=== PATIENT | male | born 1945 | race Caucasian/White ===

== ENCOUNTER 2020-05-11 15:43 | Inpatient (IN) | payer MEDICARE, SELFPAY ==
[2020-05-11] VITALS (10 sets, daily range): BP systolic 167–213; BP diastolic 96–146; PULSE 75–97; RESP 16–18; TEMP 36.5; O2SAT 96–100; BMI 26.5
--- NOTE | 2020-05-11 15:37 | ECG_ITS ---
APPROVED REPORT Exam: Resting ECG HR:90 bpm ECG Measurements Heart Rate 90 AXES MA 174 P 36 QRSd 98 QRS -16 QT 430 T 37 QTc 526 <Conclusion> Normal sinus rhythm Possible Left atrial enlargement LAD Incomplete right bundle branch block Prolonged QT Abnormal ECG Electronically signed by : Colin Fisher, 05/12/2020 08:43:20
--- NOTE | 2020-05-11 15:46 | CT_ITS ---
PROCEDURE: CT HEAD/BRAIN WO CON CLINICAL INDICATION: Weakness, Vomiting Nausea, vomiting, dizziness COMPARISON: No exams were available for comparison TECHNIQUE: Axial images obtained. All CT scans at the facility use one or more dose reduction, viz: automated exposure control, ma/kV adjustment per patient size (including targeted exams where dose is matched to indication, i.e. head), or iterative reconstruction technique. FINDINGS: There is generalized atrophy. 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 There are periventricular ischemic gliotic changes. Retention cyst is present in the left maxillary sinus. IMPRESSION: No acute intracranial finding Dictated by: Jackson Bragg MD 05/11/2020 16:24 Jackson Bragg MD in [facility] 05/11/2020 16:24
--- NOTE | 2020-05-11 15:46 | PC.NURSE ---
Rad called upon pt's arrival to ED.
--- NOTE | 2020-05-11 15:50 | XR_ITS ---
PROCEDURE: XR CHEST PORTABLE CLINICAL HISTORY: weakness cp COMPARISON: No exams were available for comparison FINDINGS: The cardiomediastinal silhouette and pulmonary vascularity are within normal limits. The lungs are clear without infiltrates, suspicious nodules, or pleural effusions. No acute bony abnormalities. IMPRESSION: No acute findings. Dictated by: Jackson Bragg MD 05/11/2020 16:47 Jackson Bragg MD in [facility] 05/11/2020 16:47
--- NOTE | 2020-05-11 15:57 | PC.NURSE ---
contacted radiology to check on status of CT for pt, stroke protocol, spoke with elizabeth. States she will check on it
--- NOTE | 2020-05-11 15:59 | PC.NURSE ---
pt to CT
--- NOTE | 2020-05-11 16:00 | PC.NURSE ---
plycor operator paging dr. gorman (surgeon program control analyst)
--- NOTE | 2020-05-11 16:01 | PC.NURSE ---
NATALEE VELEZ speaking with Dr. Coy
[2020-05-11 16:03] LABS: Basophils # 0.1 K/mm3 (0-0.2); Basophils % 0.5 % (0.1-2.0); Eosinophils % 0.2 % (0.1-12.0); Hematocrit 46.5 % (42.0-52.0); Hemoglobin 16.1 g/dL (14.1-18.0); Lymphocytes # 2.9 K/mm3 (0.7-4.5); Lymphocytes % 33.9 % (10-50); Mean Corpuscular HGB Conc 34.6 g/dL (31.8-35.4); Mean Corpuscular Hemoglobin 31.4 pg (27.0-31.2); Mean Corpuscular Volume 90.8 fl (80-94); Mean Platelet Volume 9.7 fl (7.4-10.4); Monocytes # 0.4 K/mm3 (0.1-1.0); Neutrophils # 5.2 K/mm3 (1.8-7.8); Neutrophils % 60.3 % (37.0-80.0); Platelet Count 223 K/mm3 (142-424); Red Blood Count 5.12 M/mm3 (4.60-6.20); Red Cell Distribution Width 13.6 % (11.5-17.5); White Blood Count 8.7 K/mm3 (4.8-10.8)
[2020-05-11 16:14] LABS: Chloride 101 mmol/L (98-107); Sodium 137 mmol/L (136-145)
[2020-05-11 16:16] LABS: Blood Urea Nitrogen 16 mg/dl (9-20); Creatinine Clearance Estimated 76 mL/min (50-200); Estimated Glomerular Filt Rate 94 ml/min (>60); GFR (African American) 114 ML/MIN (>60)
[2020-05-11 16:17] LABS: Alanine Aminotransferase 52 U/L (12-78); Albumin Level 4.1 g/dl (3.5-5.0); Albumin/Globulin Ratio 1.3 (1.1-1.8); Alkaline Phosphatase 128 U/L (38-126); Aspartate Amino Transferase 61 U/L (17-59); Calcium 9.6 mg/dl (8.4-10.2); Carbon Dioxide 15 mmol/L (22.0-30.0); Globulin 3.1 g/dL (1.3-3.2); Total Protein,Serum 7.2 g/dl (6.3-8.2)
[2020-05-11 16:21] LABS: Glucose 401 mg/dl (74-100)
--- NOTE | 2020-05-11 16:22 | PC.NURSE ---
pt return from CT
--- NOTE | 2020-05-11 16:26 | PC.NURSE ---
Lab at bedside
[2020-05-11 16:29] LABS: Troponin I < 0.01 ng/ml (0.00-0.034)
--- NOTE | 2020-05-11 16:29 | PC.NURSE ---
Critical Lab values called to Michelle Lazaro RN Lactic Acid 6.8
[2020-05-11 16:30] LABS: Lactic Acid 6.8 mmol/L (0.7-2.1)
--- NOTE | 2020-05-11 16:32 | PC.NURSE ---
Pt family at bedside
[2020-05-11 16:46] LABS: VBG Base Excess -4.9 mmol/L (-2.4-2.3); VBG HCO3 16.8 mmol/L (23-30); VBG Oxygen Saturation 99.1 % (50-70); VBG PO2 173.3 mmol/L (28-40); VBG Total CO2 17.4 mmol/L (23-27)
--- NOTE | 2020-05-11 16:49 | PC.NURSE ---
per BMP and Lactic to be repeated 2 hours from the first set being drawn.
[2020-05-11 16:50] LABS: VBG PCO2 17.8 mmol/L (35-51); VBG PH 7.59 mmol/L (7.31-7.41)
[2020-05-11 17:02] LABS: Acetone, Serum (Rapid) None Detected (None Detect)
--- NOTE | 2020-05-11 17:06 | PC.NURSE ---
addressed lactic acid level and need for fluids with ER MD, states at this time no infection known for pt, pt is getting a 1 Liter bolus at this time, start pt on NS with 20 meq K as ordered and give pt another 1 L bolus of LR. Will continue to monitor
[2020-05-11 17:22] LABS: Microscopic, Urine URINE MICROSCOPIC (MICROSCOPIC)
--- NOTE | 2020-05-11 17:22 | PC.NURSE ---
Dr Cid returned call. he is conche operator for service.
[2020-05-11 17:27] LABS: Appearance,Urine CLEAR (Clear); Bilirubin,Urine Negative (Negative); Blood, Urine Negative (Negative); Color,Urine YELLOW (Yellow); Glucose,Urine (UA) 3+ (Negative); Ketones,Urine 2+ (Negative); Leukocyte Esterase,Urine Negative (Negative); Nitrate,Urine Negative (Negative); Protein,Urine Negative (Negative); Urobilinogen,Urine 0.2 EU/dl (0.2)
[2020-05-11 17:34] LABS: Squamous Epithelial Cell,Urine Occasional #/hpf (0-5)
[2020-05-11 17:35] LABS: Amorphous Sediment,Urine Trace /lpf
--- NOTE | 2020-05-11 17:42 | HMH.EDGENADL ---
ED Disposition Clinical Impression: HHNC (hyperglycemic hyperosmolar nonketotic coma) Disposition: Admitted As Inpatient Condition on Discharge: Serious - Critical Care Critical Care Time: Yes Attestation: On 05/11/20, the high probability of a clinically significant, sudden or life threatening deterioration of the following system(s) required my full and direct attention, intervention and personal management. The time I documented below is in addition to time spent performing reported procedures but includes the following listed in this critical care notation. Vital system(s) involved:: Metabolic Failure My critical care processes included: Assessment & monitoring of V/S, Initial and Re-exams, Data Review/Interpretation, Coordinating Care, Medication Orders and management, Documentation Medical Decision Making - Medical Records Medical records reviewed: Yes: I reviewed the patient's medical records. - Alvaro Inquiry Pt receiving controlled substance: No Vital Signs: 05/11/20 15:44 05/11/20 16:32 05/11/20 17:15 Pulse Rate [Apical] 81 76 75 Respiratory Rate 16 Blood Pressure [Right Arm] 210/101 H 193/100 H 195/103 H Blood Pressure Mean [Right Arm] 137 131 133 Blood Pressure Source [Right Arm] Automatic Cuff Automatic Cuff Blood Pressure Position [Right Arm] Sitting Sitting Sitting 02 Sat by Pulse Oximetry 96 100 100 Oxygen Delivery Method Nasal Cannula Oxygen Flow Rate (LPM) 2 - Lab Data Lab Results 05/11/20 15:50: WBC 8.7, RBC 5.12, Hgb 16.1, Hct 46.5, MCV 90.8, MCH 31.4 H, MCHC 34.6, RDW 13.6, Plt Count 223, MPV 9.7, Neut % (Auto) 60.3, Lymph % (Auto) 33.9, [place] % (Auto) 5.0, Eos % (Auto) 0.2, Baso % (Auto) 0.5, Neut # (Auto) 5.2, Lymph # (Auto) 2.9, [place] # (Auto) 0.4, Eos # (Auto) 0.0, Baso # (Auto) 0.1 05/11/20 15:50: Sodium 137, Potassium 3.0 L, Chloride 101, Carbon Dioxide 15 L, Anion Gap 24.0 H, BUN 16, Creatinine 0.80, Estimated Creat Clear 76, Estimated GFR 94, Est GFR ( Amer) 114, Glucose 401 H*, Calcium 9.6, Total Bilirubin 1.0, AST 61 H, ALT 52, Alkaline Phosphatase 128 H, Troponin I < 0.01, Total Protein 7.2, Albumin 4.1, Globulin 3.1, Albumin/Globulin Ratio 1.3 05/11/20 15:50: Lactate 6.8 H 05/11/20 15:50: Hemoglobin A1c 12.0 H 05/11/20 15:50: Acetone Level None detected 05/11/20 16:35: VBG pH 7.59 H, VBG pCO2 17.8 L, VBG pO2 173.3 H, VBG HCO3 16.8 L, VBG Total CO2 17.4 L, VBG O2 Saturation 99.1 H, VBG Base Excess -4.9 L 05/11/20 17:00: Urine Color Yellow, Urine Appearance Clear, Urine pH 6.0, Ur Specific [place] 1.020, Urine Protein Negative, Urine Glucose (UA) 3+, Urine Ketones 2+, Urine Blood Negative, Urine Nitrate Negative, Urine Bilirubin Negative, Urine Urobilinogen 0.2, Ur Leukocyte Esterase Negative, Urine RBC None, Urine WBC None, Ur Squamous Epith Cells Occasional, Amorphous Sediment Trace, Urine Bacteria None Result diagrams: 05/11/20 15:50 05/11/20 15:50 Orders (Tests/Meds): ED MEDICATIONS Generic Name Dose Route Start Last Admin Trade Name Freq PRN Reason Stop Dose Admin Potassium Chloride/Water 100 mls @ 50 mls/hr 05/11/20 16:43 05/11/20 17:13 Potassium Chloride 20meq/100ml Ivpb IV 05/11/20 20:42 50 mls/hr Q2H SARITA Administration Lactated Ringer's 1,000 mls @ 999 mls/hr 05/11/20 17:15 Lactated Ringer's 1000 Ml Bag IV 05/11/20 18:15 .Q1H1M SARITA Discontinued Medications Generic Name Dose Route Start Last Admin Trade Name Freq PRN Reason Stop Dose Admin Lactated Ringer's 1,000 mls @ 999 mls/hr 05/11/20 16:00 05/11/20 16:23 Lactated Ringer's 1000 Ml Bag IV 05/11/20 17:00 999 mls/hr .Q1H1M SARITA Administration Potassium Chloride/Sodium Chloride 1,000 mls @ 100 mls/hr 05/11/20 16:45 05/11/20 17:14 Kcl 20 Meq In Ns 1,000 Ml Iv Soln IV 06/10/20 16:44 100 mls/hr .Q10H SARITA Administration Ondansetron HCl 4 mg 05/11/20 15:51 05/11/20 16:22 Zofran 4mg/2ml Vial IV 05/11/20 15:52 4 mg ONCE ONE Administration O
[2020-05-11 18:09] LABS: Coronavirus 19 IgG Antibody Negative (Negative); Coronavirus 19 IgM Antibody Negative (Negative)
--- NOTE | 2020-05-11 18:19 | PC.NURSE ---
Addendum entered by Holly Wilkerson, EMT 05/11/20 18:21: per lactic and bmp every two hours X2 Original Note: per md lactic and bmp every two hours X2 hours, then to be repeated every four hours until lactic is within normal range.
[2020-05-11 18:30] LABS: Lactic Acid 3.9 mmol/L (0.7-2.1)
[2020-05-11 18:31] LABS: Chloride 102 mmol/L (98-107); Potassium 3.9 mmoL/L (3.5-5.1); Sodium 138 mmol/L (136-145)
--- NOTE | 2020-05-11 18:31 | PC.NURSE ---
report called to willow shetty rn on second floor at this time.
[2020-05-11 18:34] LABS: Anion Gap 15.9 mEq/L (5-15); Blood Urea Nitrogen 15 mg/dl (9-20); Carbon Dioxide 24 mmol/L (22.0-30.0); Creatinine Clearance Estimated 76 mL/min (50-200); Estimated Glomerular Filt Rate 94 ml/min (>60); GFR (African American) 114 ML/MIN (>60); Glucose 337 mg/dl (74-100)
--- NOTE | 2020-05-11 18:47 | PC.NURSE ---
Pt arrived on the floor at this time.
--- NOTE | 2020-05-11 19:49 | PC.NURSE ---
er stated they wanted bmp every 4 hours and lactic every 4 until it was less than 2
[2020-05-11 20:00] LABS: Reflex Lactic Add Lactic Reflex
[2020-05-11 20:12] LABS: Troponin I < 0.01 ng/ml (0.00-0.034)
[2020-05-11 20:24] LABS: Chloride 101 mmol/L (98-107); Sodium 138 mmol/L (136-145)
[2020-05-11 20:25] LABS: Potassium 3.9 mmoL/L (3.5-5.1)
[2020-05-11 20:27] LABS: Blood Urea Nitrogen 14 mg/dl (9-20); Creatinine Clearance Estimated 76 mL/min (50-200); Estimated Glomerular Filt Rate 110 ml/min (>60); GFR (African American) 133 ML/MIN (>60)
[2020-05-11 20:28] LABS: Anion Gap 16.9 mEq/L (5-15); Calcium 9.3 mg/dl (8.4-10.2); Carbon Dioxide 24 mmol/L (22.0-30.0); Glucose 330 mg/dl (74-100)
[2020-05-11 20:30] LABS: Lactic Acid 3.6 mmol/L (0.7-2.1)
--- NOTE | 2020-05-11 22:38 | PC.NURSE ---
He is A&Ox4. His face is red but he states that it is always red. He reports I feel great. His BP is slightly lower than what it was upon his arrival to the floor. He states he has been drinking alot of pop with sugar recently. He is voiding per his urinal. His urine is straw colored and clear. 1300mL of urine out thus far this shift. Denies nausea, dizziness, and pain. Plan to place in seizure precautions. He denies any medical hx other than a hx of HTN and hernia repair. He states he used to take lisinopril 20mg PO daily for HTN but states after he retired his PCP stated that his BP was better and that he did not need to take it anymore. Denies any home meds. Teds are refused. He reports that his last BM was on 05/11.
[2020-05-11 22:53] LABS: Troponin I < 0.01 ng/ml (0.00-0.034)
[2020-05-11 23:12] LABS: POC Glucose,Bedside 302 (70-110)
[2020-05-11 23:12] LABS: POC Glucose,Bedside 309 (70-110)
[2020-05-12] VITALS (24 sets, daily range): BP systolic 102–206; BP diastolic 61–112; PULSE 70–94; RESP 15–20; TEMP 36.7–37.1; O2SAT 94–100; BMI 26.3
[2020-05-12 00:36] LABS: Lactic Acid 2.3 mmol/L (0.7-2.1)
[2020-05-12 00:41] LABS: Anion Gap 7.9 mEq/L (5-15); Blood Urea Nitrogen 14 mg/dl (9-20); Calcium 9.3 mg/dl (8.4-10.2); Carbon Dioxide 29 mmol/L (22.0-30.0); Chloride 105 mmol/L (98-107); Creatinine Clearance Estimated 76 mL/min (50-200); Estimated Glomerular Filt Rate 110 ml/min (>60); GFR (African American) 133 ML/MIN (>60); Glucose 240 mg/dl (74-100); Potassium 3.9 mmoL/L (3.5-5.1); Sodium 138 mmol/L (136-145)
--- NOTE | 2020-05-12 03:25 | PC.NURSE ---
BP has started to decrease since admission. 154/87 at 0300. NSR on telemetry. Urine continues to be straw colored and clear.
[2020-05-12 04:09] LABS: Chloride 103 mmol/L (98-107); Potassium 3.7 mmoL/L (3.5-5.1); Sodium 139 mmol/L (136-145)
[2020-05-12 04:12] LABS: Anion Gap 12.7 mEq/L (5-15); Blood Urea Nitrogen 14 mg/dl (9-20); Calcium 8.9 mg/dl (8.4-10.2); Carbon Dioxide 27 mmol/L (22.0-30.0); Creatinine Clearance Estimated 76 mL/min (50-200); Estimated Glomerular Filt Rate 110 ml/min (>60); GFR (African American) 133 ML/MIN (>60); Glucose 196 mg/dl (74-100)
[2020-05-12 04:13] LABS: Lactic Acid 1.6 mmol/L (0.7-2.1)
[2020-05-12 05:29] LABS: POC Glucose,Bedside 180 (70-110)
--- NOTE | 2020-05-12 07:33 | HMH.PHAVTE ---
[facility] Pharmacy VTE Monitoring - Patient Demographics Admission date: 05/12/20 Report Date: 05/12/20 Time: 07:33 Allergies/Adverse Reactions: Patient Allergies No Known Allergies Allergy (Verified 05/11/20 15:50) Height: 1.78 m Weight: 83.518 kg Patient Problems: Current Active Problems HHNC (hyperglycemic hyperosmolar nonketotic coma) (Acute) - VTE Risk Labs: VTE Related Lab Results Hgb 16.1 g/dL (14.1-18.0) 05/11/20 15:50 Hct 46.5 % (42.0-52.0) 05/11/20 15:50 Plt Count 223 K/mm3 (142-424) 05/11/20 15:50 BUN 14 mg/dl (9-20) 05/12/20 03:55 Creatinine 0.70 mg/dl (0.66-1.25) 05/12/20 03:55 Estimated Creat Clear 76 mL/min (50-200) 05/12/20 03:55 Was VTE Risk Assessment Performed: Yes VTE Score: 1 VTE Risk Level: Very Low Risk Clinical Trial Participant: No - Prophylaxis VTE Prophylaxis Ordered?: Yes Types of VTE Prophylaxis: TEDS Knee High
[2020-05-12 08:13] LABS: Chloride 103 mmol/L (98-107)
[2020-05-12 08:14] LABS: Potassium 3.8 mmoL/L (3.5-5.1); Sodium 137 mmol/L (136-145)
[2020-05-12 08:16] LABS: Blood Urea Nitrogen 15 mg/dl (9-20); Creatinine Clearance Estimated 75 mL/min (50-200); Estimated Glomerular Filt Rate 110 ml/min (>60); GFR (African American) 133 ML/MIN (>60)
[2020-05-12 08:17] LABS: Anion Gap 10.8 mEq/L (5-15); Calcium 8.8 mg/dl (8.4-10.2); Carbon Dioxide 27 mmol/L (22.0-30.0); Glucose 176 mg/dl (74-100)
--- NOTE | 2020-05-12 12:15 | PC.NURSE ---
Called office and received a recording, message left requesting diet order
[2020-05-12 12:20] LABS: POC Glucose,Bedside 182 (70-110)
--- NOTE | 2020-05-12 13:09 | CA_ITS ---
APPROVED REPORT EXAM: Comprehensive 2D, Doppler, and color-flow Echocardiogram Roofer Helper Vinyl Coating: Teresita Weiss CRT Ht: 5 ft 10 in Wt: 184lbs BSA: 2.02 BP: 195/103 mmHg Indications: Murmur 2D Dimensions LVOT 2.10 cm (M/F) 1.5-2.5 M-Mode Dimensions RVDd 2.63 cm (0.9-2.6) LVDd 4.13 cm (3.5-5.7) LVDs 2.35 cm (3.5-5.7) IVSd 2.06 cm (0.6-1.1) PWd 1.00 cm (0.6-1.1) EF (Teich) 74.70% FS 43.10% EDV (Teich) 75.50 mL ESV (Teich) 19.10 mL LV Diastology E/A Ratio 0.61 Mitral Valve MV A Velocity 104.00 (40-130 cm/s) Left Ventricle Atrium is mildly enlarged, left ventricle is normal size, mild concentric left ventricular hypertrophy, visually estimated ejection fraction 55% with no regional wall motion abnormality, grade 1 diastolic dysfunction seen with tissue Doppler evidence of raise left atrial pressure. Right Ventricle Right atrium and right ventricle are normal size and contractility. Aortic Valve Aortic valve is thickened and fibrosed. There is no aortic stenosis or aortic insufficiency. Mitral Valve Mitral valve leaflets are minimally thickened, there is mild mitral regurgitation. Tricuspid Valve Tricuspid valve is grossly normal, there is mild tricuspid regurgitation. Pulmonic Valve Pulmonic valve is poorly visualized. Great Vessels Aortic root is normal size. Pericardium No significant pericardial effusion noted Conclusion 1. Mildly enlarged left atrium, normal left ventricular size, mild concentric left ventricular hypertrophy, visually estimated ejection fraction 55% with no regional wall motion abnormality, grade 1 diastolic dysfunction seen with tissue Doppler evidence of raise left atrial pressure. 2. Mild mitral and tricuspid regurgitation. 3. Thickened and calcified aortic valve without aortic stenosis or aortic insufficiency. 4. No significant pericardial effusion noted. Electronically signed by : Sreedhar Rodriguez, 05/13/2020 13:26:14
--- NOTE | 2020-05-12 13:09 | CA_ITS ---
APPROVED REPORT Seal Skinner: CT Laterality: Bilateral Study Quality: Adequate Indications: dizzyness/bruit Doppler Spectral Velocity Analysis ECA (R) 165.30/12.80 cm/s ECA (L) 152.20/9.60 cm/s dICA (R) 83.50/23.10 cm/s dICA (L) 114.50/39.70 cm/s Kirti (R) 92.50/22.50 cm/s Kirti (L) 89.00/26.90 cm/s pICA (R) 61.00/15.40 cm/s pICA (L) 73.30/22.40 cm/s dCCA (R) 73.70/7.70 cm/s dCCA (L) 105.90/21.20 cm/s pCCA (R) 115.70/12.90 cm/s pCCA (L) 131.90/19.30 cm/s Vert (R) 34.70/12.80 cm/s Vert (L) 23.40/3.00 cm/s ICA/CCA 1.30 ICA/CCA 1.10 Findings Duplex evaluation demonstrates stenosis of the right proximal internal carotid artery in the range of 20-49%,lower end of scale Duplex evaluation demonstrates stenosis of the left proximal internal carotid artery in the range of 20-49% lower end of scale. Duplex evaluation demonstrates antegrade flow of the bilateral Vertebral Arteries. Conclusion Duplex evaluation demonstrates stenosis of the right proximal internal carotid artery in the range of 20-49%,lower end of scale Duplex evaluation demonstrates stenosis of the left proximal internal carotid artery in the range of 20-49% lower end of scale. Duplex evaluation demonstrates antegrade flow of the bilateral Vertebral Arteries. Electronically signed by : Jackson Bragg MD 05/12/2020 17:22:26
--- NOTE | 2020-05-12 14:31 | HMH.CNCARD ---
History of Present Illness Consult date: 05/12/20 Requesting physician: Kin Cid Chief complaint: weakness History of present illness: This is a 75-year-old white gentleman who came into the hospital with weakness and fatigue. The patient states that he had been out working and he got extremely fatigued and weak. He states this continued to progress and then felt like his legs were heavy and he could not move. He did get significantly nauseated and had to vomit. He did call EMS and was brought to the emergency department. The patient was found to be hypertensive and hyperglycemic. The patient was unaware that he had hypertension or diabetes. He has been started on metformin and lisinopril. Today he states that he does feel much better. He denies any chest pain or pressure. He denies any shortness of breath or edema. He denies any fever, chills, nausea, vomiting, diarrhea, PND or orthopnea today. The patient does have an abnormal EKG but no acute ischemic changes are noted. He denies tobacco use. He denies a family history of ischemic heart disease. His troponins were negative on admission. [facility] History I have reviewed the patient's past medical history: Yes Medical History: Reports:: Hypertension Denies:: Cancer, Diabetes Mellitus Type 1, Diabetes Mellitus Type 2, Internal Pacemaker, MRSA *Have you ever received a pneumonia vaccine?: No *Have you received a flu vaccine this season?: No Other Surgeries: No: Pacemaker Amputation: No - *Social History Last grade of school completed: High school graduate Smoking Status: Never smoker Alcohol Intake: never *Occupational Status:: retired *Travel in the last 8 weeks: None Family Hx:: Diabetes Meds Home Medications Medication Instructions Recorded Confirmed Type No Known Home Medications 05/11/20 05/11/20 History Allergies Allergy/AdvReac Type Severity Reaction Status Date / Time No Known Allergies Allergy Verified 05/11/20 15:50 Exam Vital signs and Labs for Last 24 Hours: Temp Pulse Resp BP Pulse Ox 98.4 F 74 17 158/88 H 99 05/12/20 03:30 05/12/20 12:00 05/12/20 12:00 05/12/20 12:00 05/12/20 12:00 Laboratory Results - last 24 hr 05/11/20 15:50: WBC 8.7, RBC 5.12, Hgb 16.1, Hct 46.5, MCV 90.8, MCH 31.4 H, MCHC 34.6, RDW 13.6, Plt Count 223, MPV 9.7, Neut % (Auto) 60.3, Lymph % (Auto) 33.9, [place] % (Auto) 5.0, Eos % (Auto) 0.2, Baso % (Auto) 0.5, Neut # (Auto) 5.2, Lymph # (Auto) 2.9, [place] # (Auto) 0.4, Eos # (Auto) 0.0, Baso # (Auto) 0.1 05/11/20 15:50: Sodium 137, Potassium 3.0 L, Chloride 101, Carbon Dioxide 15 L, Anion Gap 24.0 H, BUN 16, Creatinine 0.80, Estimated Creat Clear 76, Estimated GFR 94, Est GFR ( Amer) 114, Glucose 401 H*, Calcium 9.6, Total Bilirubin 1.0, AST 61 H, ALT 52, Alkaline Phosphatase 128 H, Troponin I < 0.01, Total Protein 7.2, Albumin 4.1, Globulin 3.1, Albumin/Globulin Ratio 1.3 05/11/20 15:50: Lactate 6.8 H 05/11/20 15:50: Hemoglobin A1c 12.0 H 05/11/20 15:50: Acetone Level None detected 05/11/20 15:50: SARS-CoV-2 IgG Ab (Rapid) Negative, SARS-CoV-2 IgM Ab (Rapid) Negative 05/11/20 16:35: VBG pH 7.59 H, VBG pCO2 17.8 L, VBG pO2 173.3 H, VBG HCO3 16.8 L, VBG Total CO2 17.4 L, VBG O2 Saturation 99.1 H, VBG Base Excess -4.9 L 05/11/20 17:00: Urine Color Yellow, Urine Appearance Clear, Urine pH 6.0, Ur Specific [place] 1.020, Urine Protein Negative, Urine Glucose (UA) 3+, Urine Ketones 2+, Urine Blood Negative, Urine Nitrate Negative, Urine Bilirubin Negative, Urine Urobilinogen 0.2, Ur Leukocyte Esterase Negative, Urine RBC None, Urine WBC None, Ur Squamous Epith Cells Occasional, Amorphous Sediment Trace, Urine Bacteria None 05/11/20 18:10: Lactate 3.9 H 05/11/20 18:10: Sodium 138, Potassium 3.9 D, Chloride 102, Carbon Dioxide 24 D, Anion Gap 15.9 H, BUN 15, Creatinine 0.80, Estimated Creat Clear 76, Estimated GFR 94, Est GFR ( Amer) 114, Glucose 337 H, Calcium 9.0 05/11/20 19:14: POC Glucose 309 H*
--- NOTE | 2020-05-12 14:48 | PC.NURSE ---
Left message at office to request a diet order
--- NOTE | 2020-05-12 15:42 | PC.NURSE ---
Left message with Dr Victoria nurse pertaining to diet order
--- NOTE | 2020-05-12 15:56 | PC.NURSE ---
Left message with dr Cid's nurse that patient is tearful and wanting to be discharged
--- NOTE | 2020-05-12 16:55 | PC.NURSE ---
call center trainer (Dr Griffin) notified of pts elevated BP, see VS. 5mg amlodipine po x1 ordered, read back and verified. Order for diabetic diet given as well
--- NOTE | 2020-05-12 17:38 | PC.NURSE ---
Addendum entered by Ronda Martinez RN 05/12/20 18:27: Lungs are CLEAR, NO wheezes noted Original Note: Pt is alert and oriented x4. Lungs have some wheezing noted. O2 sats have been in upper 90's-100. He was up to the chair for a while, tolerated well. BP has been elevated intermittently t/o shift. Amlodipine administered, will recheck bp after it has had time to take effect. He complained that he wants to go home. He states he is afraid his will have a breakdown if he doesn't get home tonight. He states he must go home tonight or he can't take it. He was quite tearful. Message left with Connie in Dr Victoria office. Pt had an episode on diaphoresis, dizziness and and nausea as he was eating supper. Pt has vomited a few times. faculty i on call medical assistant (Dr Griffin) on floor and new order for zofran 4mg q4hr prn ordered and administered. Glucose 182. He has been NSR on telemetry. Denies chest pain and soa. He has ambulated to the bathroom with standby assist. Pt currently resting in bed with cool rag to forehead. Will continue to monitor.
[2020-05-12 19:04] LABS: POC Glucose,Bedside 182 (70-110)
--- NOTE | 2020-05-12 19:28 | PC.NURSE ---
report given to erwin
--- NOTE | 2020-05-12 20:33 | HMH.HP ---
*Admission Date: 05/11/20 *Chief complaint: elevated glu *History of present illness: this pt presented to the ed with new onset diabetes scription of Symptoms (Recalled from ER Triage Doc. by RN): Pt arrives to ED diaphoretic, lethargic in nature. EMS reports pt reported to them that he has L sided weakness for several days. Pt was reporting feeling dizzy while driving, EMS states pt reported he had just gotten home from [place] he was laying outside in his yard. EMS reports pt had 1 episode of vomiting The patient is a 75 year old male with no reported PMH who presents to the ED with generalized weakness and dizziness. History is obtained from EMS. The patient reportedly had not been feeling well the last few days and complained of some dizziness and left arm weakness (LKN > 48 hours ago). Today, patient had acute onset worsening of his weakness and collapsed on the floor. No loss of consciousness. Patient himself reports no focal weakness but feels generally weak and that the room is spinning. En route the patient was hypertensive to the 200s and his glucose was in the 400s. No hx of DM or HTN. No trauma. No recent illness. he patient is a 75 year old male who presents with generalized weakness and dizziness. On arrival, patient is hypertensive to the 200s and glucose is 401. He is diaphoretic, drowsy, but answer questions appropriately and arousable. He has a nonfocal neuro exam and 5/5 strength in his extremities. EKG showed no ischemic changes. Labs including CBC, CMP, VBG, troponins, UA, CXR, CT head was obtained. CT head unremarkable. Acetones negative. pH 7.56 with low CO2 (likely due to hyperventilation), low bicarb. Lactate 6. He was given 1L bolus of LR here. His potassium was 3.0 so insulin was not initiated. He was started on maintenance fluids with 20 meQ potassium as well as 20 meQ extra potassium replacement (40 total ordered). Repeat bloodwork was ordered. On reexamination the patient was more alert, noted that his dizziness had completely improve. States he still feels weak but not as much, is much more alert on exam. continues to be nonfocal. Hemoglobin A1C is 12. Patients presentation most consistent with HHS (alkalotic, no ketones). Discussed with relationship assoc physician, Dr. Cid. Will admit to his service on step down. Discussed plan with family and patient. [facility] History I have reviewed the patient's past medical history: Yes Medical History: Reports:: Hypertension Denies:: Cancer, Diabetes Mellitus Type 1, Diabetes Mellitus Type 2, Internal Pacemaker, MRSA *Have you ever received a pneumonia vaccine?: No *Have you received a flu vaccine this season?: No Other Surgeries: No: Pacemaker Amputation: No - *Social History Last grade of school completed: High school graduate Smoking Status: Never smoker Alcohol Intake: never *Occupational Status:: retired *Travel in the last 8 weeks: None Family Hx:: Diabetes Review of Systems - Review of Systems Review of systems:: pertinent systems reviewed and negative unless documented below - Constitutional Denies fever(s) - Eyes Denies change in vision - ENT Denies sore throat - *Cardiovascular Denies chest pain at rest - *Respiratory Denies cough - *Gastrointestinal Denies abdominal pain - *Genitourinary Denies blood in urine - *Musculoskeletal Denies joint pain - Integumentary/Breasts Denies rash - *Neurologic Reports weakness, Denies localized weakness, Denies headache(s) - Psychiatric Denies anxiety Meds Home Medications Medication Instructions Recorded Confirmed Type No Known Home Medications 05/11/20 05/11/20 History Allergies Allergy/AdvReac Type Severity Reaction Status Date / Time No Known Allergies Allergy Verified 05/11/20 15:50 Exam Vital signs and Labs for Last 24 Hours: Temp Pulse Resp BP Pulse Ox 98.7 F 85 18 177/95 H 99 05/12/20 16:00 05/12/20 18:15 05/12/20 18:15 05/12/20 18:15 05/12/20 18:15
[2020-05-12 22:48] LABS: POC Glucose,Bedside 248 (70-110)
[2020-05-13] VITALS (17 sets, daily range): BP systolic 112–182; BP diastolic 58–92; PULSE 60–85; RESP 12–22; TEMP 36.4–37.2; O2SAT 94–100; BMI 26.3
--- NOTE | 2020-05-13 05:21 | PC.NURSE ---
Pt is A&Ox4 and has ambulated OOB several times and tolerated well. Pt has not had any further dizzy or diaphoretic episodes. Pt has denied any further N/V this shift. Pt denies any pain. Pt anxious to go home. Pt offered broth, soups, crackers, and jello however pt refused stating he wanted to give his stomach some more time. Lungs CTA, room air sat >94% t/o shift. SSI administered per OCT. BP has became more stable t/o shift, current BP 131/78. VSS, call light within reach, will continue to monitor.
[2020-05-13 06:49] LABS: POC Glucose,Bedside 178 (70-110)
--- NOTE | 2020-05-13 09:05 | NM_ITS ---
PROCEDURE: NM GASTRIC EMPTYING STUDY CLINICAL INDICATION: new dm and vomiting COMPARISON: CR XR CHEST PORTABLE from 05/11/2020 TECHNIQUE: Dose 0.53 mCi technetium sulfur colloid ingested with radial labeled meal FINDINGS: There is a centrally 0 gastric emptying. The study is carried out up to 90 minutes. There was residual activity within the esophagus which could be related to contamination from the sulfur colloid preparation or GE reflux or delayed esophageal emptying. IMPRESSION: Severe gastroparesis Residual activity within the esophagus which could be related to reflux, esophageal obstruction, or contamination artifact Dictated by: Jackson Bragg MD 05/14/2020 08:48 Jackson Bragg MD in [facility] 05/14/2020 08:48
--- NOTE | 2020-05-13 09:07 | HMH.ACPN2 ---
Internal Medicine - PN: Subj *Date: 05/13/20 *Time: 08:00 Interval history: pt ate breakfast and became dizzy and started vomiting. Pt states nausea improved Exam Vital signs and Labs for Last 24 Hours: Temp Pulse Resp BP Pulse Ox 97.5 F L 66 12 182/92 H 97 05/13/20 08:00 05/13/20 08:00 05/13/20 08:00 05/13/20 08:00 05/13/20 08:00 Laboratory Results - last 24 hr 05/12/20 12:12: POC Glucose 182 H 05/12/20 16:58: POC Glucose 182 H 05/12/20 21:33: POC Glucose 248 H 05/13/20 06:42: POC Glucose 178 H I & O for Last 24 hours: Intake & Output 05/10/20 05/11/20 05/12/20 05/13/20 11:59 11:59 11:59 11:59 Intake Total 1994 1416 / 1416 Output Total 2830 / 2830 550 / 550 Balance -835 / -835 866 / 866 Weight 184 lb 1.728 oz 184 lb - Constitutional no acute distress - *Routine HEENT Exam Head: Present: normocephalic Eye: Present: PERRL ENT: Present: mucous membranes moist - *Routine Neck Exam Present: supple. Absent: lymphadenopathy - *Routine Respiratory Exam Present: CTA bilaterally - *Routine Cardiovascular Exam Present: RRR - *Routine Abdominal Exam Present: soft, normoactive bowel sounds. Absent: tenderness - *Routine Extremities Exam Present: normal capillary refill. Absent: cyanosis, clubbing, edema - *Routine Skin Exam Present: warm. Absent: rash - *Routine Neurological Exam Present: alert, oriented X3 - Routine Psychiatric Exam Present: normal affect Assessment and Plan (1) Weakness Current visit: Yes Status: Acute Category: Medical Code(s): R53.1 - Weakness (2) Fatigue Current visit: Yes Status: Acute Category: Medical Code(s): R53.83 - Other fatigue (3) Hypertension Current visit: Yes Status: Acute Category: Medical Code(s): I10 - Essential (primary) hypertension (4) Diabetes Current visit: Yes Status: Acute Category: Medical Code(s): E11.9 - Type 2 diabetes mellitus without complications (5) Abnormal EKG Current visit: Yes Status: Acute Category: Medical Code(s): R94.31 - Abnormal electrocardiogram [ECG] [EKG] - Assessment and plan all Dx Assessment and Plan for all problems:: rounded with dr perkins all orders per dr perkins gastric emptying study- r/o gastropersis reglan
[2020-05-13 12:04] LABS: POC Glucose,Bedside 184 (70-110)
[2020-05-13 17:17] LABS: POC Glucose,Bedside 173 (70-110)
--- NOTE | 2020-05-13 20:29 | PC.NURSE ---
PT HAS BEEN PLEASANT TODAY. DID HAVE TWO EPISODES OF N/V, BOTH OF WHICH WAS AFTER CONSUMING FOOD. ZOFRAN ADMIN PER OCT W/ ADEQUATE RELIEF NOTED. PT DENIES ABDOMINAL PAIN. HAS NOTED WEAKNESS WHEN AMBULATING AND REQUIRES ASSISTANCE X1 WHEN AMBULATING. CALL MALLORY IS W/IN REACH. FRIEND AT BEDSIDE THROUGHOUT SHIFT. NO NEEDS VOICED. REPORT GIVEN TO Danni JIMENES RN.
[2020-05-13 21:23] LABS: POC Glucose,Bedside 176 (70-110)
[2020-05-14] VITALS (8 sets, daily range): BP systolic 117–178; BP diastolic 80–95; PULSE 68–90; RESP 14–20; TEMP 36.6–37; O2SAT 95–100; BMI 25.7
--- NOTE | 2020-05-14 05:00 | PC.NURSE ---
Pt is A&Ox4 and has ambulated to the BR a few times this shift and tolerated well. Pt has rested well during the night. BP has been elevated, SBP 138-171 this shift. Pt has denied any headache, dizziness, SOB, or chest/back pain. Pt has denied any nausea or ABD pain. Lungs CTA. NSR on tele. VSS, call light within reach.
[2020-05-14 06:15] LABS: Basophils % 0.5 % (0.1-2.0); Eosinophils % 0.1 % (0.1-12.0); Hemoglobin 13.8 g/dL (14.1-18.0); Lymphocytes # 1.8 K/mm3 (0.7-4.5); Lymphocytes % 26.4 % (10-50); Mean Corpuscular HGB Conc 34.6 g/dL (31.8-35.4); Mean Corpuscular Hemoglobin 31.1 pg (27.0-31.2); Mean Corpuscular Volume 89.8 fl (80-94); Mean Platelet Volume 9.1 fl (7.4-10.4); Monocytes # 0.4 K/mm3 (0.1-1.0); Monocytes % 5.3 % (1.7-9.3); Neutrophils # 4.7 K/mm3 (1.8-7.8); Neutrophils % 67.6 % (37.0-80.0); Platelet Count 196 K/mm3 (142-424); Red Blood Count 4.45 M/mm3 (4.60-6.20); Red Cell Distribution Width 13.4 % (11.5-17.5); White Blood Count 6.9 K/mm3 (4.8-10.8)
[2020-05-14 06:49] LABS: Chloride 100 mmol/L (98-107)
[2020-05-14 06:50] LABS: Potassium 3.8 mmoL/L (3.5-5.1); Sodium 134 mmol/L (136-145)
[2020-05-14 06:52] LABS: POC Glucose,Bedside 144 (70-110)
[2020-05-14 06:53] LABS: Anion Gap 9.8 mEq/L (5-15); Blood Urea Nitrogen 17 mg/dl (9-20); Calcium 8.6 mg/dl (8.4-10.2); Carbon Dioxide 28 mmol/L (22.0-30.0); Creatinine Clearance Estimated 73 mL/min (50-200); Estimated Glomerular Filt Rate 94 ml/min (>60); GFR (African American) 114 ML/MIN (>60); Glucose 141 mg/dl (74-100)
[2020-05-14 11:12] LABS: POC Glucose,Bedside 121 (70-110)
--- NOTE | 2020-05-14 12:01 | DIET.NUTRFU ---
Pt has had some nausea and vomiting after eating. Pt reported that he has no new questions about diabetic education materials but he has read over them since verbal education. Encouraged pt to follow up with outpatient nutrition counseling. Will continue to monitor.
--- NOTE | 2020-05-14 15:07 | P.CONS_ITS ---
Gastroenterology Consult Consult:: Gastroenterology Consultation Date of Service-May 14, 2020 History of Present Illness: Mr. Howell is a 75-year-old gentleman with a new onset of diabetes. The patient was having some lethargy, diaphoresis, lightheadedness and weakness. He had syncope. He was hypertensive and his glucose was in the 400s. (401). He did not have any CT scan of the abdomen but he initially had some nausea and vomiting. He has no other medical history. He was seen by cardiology. He did have a gastric emptying study that showed severe gastroparesis. He was placed on metoclopramide/Reglan. All of his symptoms have improved. His blood sugar is now controlled. His hemoglobin hematocrit were 13.8 and 40.0. He was admitted for observation. Past Medical History: 1. Hypertension Past Surgical History: See chart Medications: 1. Metoclopramide ALLERGIES: No known drug allergies Social History: Patient reports no tobacco or alcohol Family History: Noncontributory Review of Systems: See chart Physical Examination: Gen.: The patient is a well-developed well-nourished individual in no acute dist ress HEENT: Normocephalic/atraumatic extraocular movements are intact anicteric Neck: Supple no lymphadenopathy Chest: Clear to auscultation Cardiovascular: Regular rate and rhythm Abdomen: Normoactive bowel sounds soft, nontender, nondistended, no hepatosplenomegaly Extremities: No edema Labs: Hemoglobin 13.8, hematocrit 40.0, AST 61, alkaline phosphatase 128, repeat blood glucose 141, serum ketones/acetone negative Radiology: Impression/Plan: 1. Gastroparesis. The patient is clinically improved and may have some anabaptist of gastric motility. Given his new onset of diabetes, I would still recommend that he have an imaging study of the abdomen and especially the pancreas. He does have a slightly elevated alkaline phosphatase and AST level. This can certainly be done as an outpatient. I would recommend that he follow- up with FRANCIS[facility] Galan in 2 to 4 weeks. I would recommend that he have a CT scan of the abdomen and pelvis even prior to discharge. He is very borderlin e anemic. The patient is clinically much improved.
--- NOTE | 2020-05-14 15:31 | PC.NURSE ---
this morning md was okay with patient eating after arabella saw him. verified with dr. bell patient could eat
--- NOTE | 2020-05-14 16:20 | CT_ITS ---
PROCEDURE: CT ABDOMEN PELVIS WO CON CLINICAL INDICATION: abd pain, elevated phos generalized abd pain with n/v, gastric empyting study done yesterday COMPARISON: No exams were available for comparison TECHNIQUE: Axial images obtained with sagittal and coronal reformats. All CT scans at the facility use one or more dose reduction, viz: automated exposure control, ma/kV adjustment per patient size (including targeted exams where dose is matched to indication, i.e. head), or iterative reconstruction technique. FINDINGS: LOWER THORAX: There is trace bilateral effusions. ABDOMEN & PELVIS: Fatty liver within 8 mm hypodensity in the left hepatic lobe. The gallbladder and spleen have an unremarkable appearance. There are few scattered calcifications within the pancreas which may reflect chronic pancreatitis. There are nonobstructing bilateral renal calculi the largest in the mid polar region on the left measuring up to 9 mm. No hydronephrosis. No ureteral calculi. The adrenal glands are mildly prominent but maintain and adrenal form shape. There is mild thickening of the left lateral aspect of the pararenal fascia No intestinal obstruction or free air. No evidence of appendicitis. Coarse central prostate calcifications are present.. There is some minimal stranding of the fat in the pericolic region along the descending colon. There is mild degree of motion artifact in this could somewhat be secondary to that finding. Mild inflammatory changes are also considered. No convincing evidence of diverticulitis. No pelvic mass or abnormal fluid collection. There are mild degenerative changes of the spine. IMPRESSION: 1. Bilateral nephrolithiasis more prominent on the left without evidence of obstruction. 2. There is some minimal stranding of the pericolic fat along the descending colon nonspecific but could be related to some mild colitis. 3. Scattered pancreatic calcifications which may be seen with chronic pancreatitis. No evidence of acute pancreatitis. There is mild thickening of the left lateral pararenal fascia nonspecific Dictated by: Jackson rBagg MD 05/15/2020 12:32 Jackson Bragg MD in [place] 05/15/2020 12:32
[2020-05-14 16:48] LABS: POC Glucose,Bedside 135 (70-110)
--- NOTE | 2020-05-14 17:07 | HMH.DCSUM ---
General - General Admission date:: 05/11/20 Discharge date: 05/14/20 HPI HPI: this pt presented to the ed with new onset diabetes scription of Symptoms (Recalled from ER Triage Doc. by RN): Pt arrives to ED diaphoretic, lethargic in nature. EMS reports pt reported to them that he has L sided weakness for several days. Pt was reporting feeling dizzy while driving, EMS states pt reported he had just gotten home from [place] he was laying outside in his yard. EMS reports pt had 1 episode of vomiting The patient is a 75 year old male with no reported PMH who presents to the ED with generalized weakness and dizziness. History is obtained from EMS. The patient reportedly had not been feeling well the last few days and complained of some dizziness and left arm weakness (LKN > 48 hours ago). Today, patient had acute onset worsening of his weakness and collapsed on the floor. No loss of consciousness. Patient himself reports no focal weakness but feels generally weak and that the room is spinning. En route the patient was hypertensive to the 200s and his glucose was in the 400s. No hx of DM or HTN. No trauma. No recent illness. he patient is a 75 year old male who presents with generalized weakness and dizziness. On arrival, patient is hypertensive to the 200s and glucose is 401. He is diaphoretic, drowsy, but answer questions appropriately and arousable. He has a nonfocal neuro exam and 5/5 strength in his extremities. EKG showed no ischemic changes. Labs including CBC, CMP, VBG, troponins, UA, CXR, CT head was obtained. CT head unremarkable. Acetones negative. pH 7.56 with low CO2 (likely due to hyperventilation), low bicarb. Lactate 6. He was given 1L bolus of LR here. His potassium was 3.0 so insulin was not initiated. He was started on maintenance fluids with 20 meQ potassium as well as 20 meQ extra potassium replacement (40 total ordered). Repeat bloodwork was ordered. On reexamination the patient was more alert, noted that his dizziness had completely improve. States he still feels weak but not as much, is much more alert on exam. continues to be nonfocal. Hemoglobin A1C is 12. Patients presentation most consistent with HHS (alkalotic, no ketones). Discussed with deputy controller physician, Dr. Cid. Will admit to his service on step down. Discussed plan with family and patient. Hospital Course Hospital Course: Laboratory Tests 05/11/20 05/11/20 05/11/20 15:50 15:50 15:50 WBC 8.7 RBC 5.12 Hgb 16.1 Hct 46.5 MCV 90.8 MCH 31.4 H MCHC 34.6 RDW 13.6 Plt Count 223 MPV 9.7 Neut % (Auto) 60.3 Lymph % (Auto) 33.9 [place] % (Auto) 5.0 Eos % (Auto) 0.2 Baso % (Auto) 0.5 Neut # (Auto) 5.2 Lymph # (Auto) 2.9 [place] # (Auto) 0.4 Eos # (Auto) 0.0 Baso # (Auto) 0.1 VBG pH VBG pCO2 VBG pO2 VBG HCO3 VBG Total CO2 VBG O2 Saturation VBG Base Excess Sodium 137 Potassium 3.0 L Chloride 101 Carbon Dioxide 15 L Anion Gap 24.0 H BUN 16 Creatinine 0.80 Estimated Creat Clear 76 Estimated GFR 94 Est GFR ( Amer) 114 Glucose 401 H* POC Glucose Hemoglobin A1c Lactate 6.8 H Calcium 9.6 Total Bilirubin 1.0 AST 61 H ALT 52 Alkaline Phosphatase 128 H Troponin I < 0.01 Total Protein 7.2 Albumin 4.1 Globulin 3.1 Albumin/Globulin Ratio 1.3 Urine Color Urine Appearance Urine pH Ur Specific [place] Urine Protein Urine Glucose (UA) Urine Ketones Urine Blood Urine Nitrate Urine Bilirubin Urine Urobilinogen Ur Leukocyte Esterase Urine RBC Urine WBC Ur Squamous Epith Cells Amorphous Sediment Urine Bacteria Acetone Level SARS-CoV-2 IgG Ab (Rapid) SARS-CoV-2 IgM Ab (Rapid) 05/11/20 05/11/20 05/11/20 15:50 15:50 15:50 WBC RBC Hgb Hct MCV MCH MCHC RDW Plt Count MPV Neut % (Auto)
--- NOTE | 2020-05-14 17:12 | PC.NURSE ---
patient has done well this shift. no complaints earlier in shift however, after dr. bell saw patient he began to feel very nauseous. he has been npo this shift. only minimal ice chips. bp has been slightly elevated. red face remains base line. independent in room. rings out as needed. vitals stable will continue to monitor.
--- NOTE | 2020-05-14 17:20 | PC.NURSE ---
Addendum entered by Winsome Billy RN 05/14/20 18:18: she had stated to go on with cat scan and she would speak with Original Note: spoke with terrance wilcox at this time that patient within the last 45mins-1 hour started complaining about severe nausea. stated that just the thought of food and the smell makes him feel very sick. when asked if he felt he could do this at home he stated that he was unsure now that he felt he could not eat. he had earlier been asking to go home but now feels he is not ready.
--- NOTE | 2020-05-14 19:14 | PC.NURSE ---
report given to joselin
[2020-05-14 21:32] LABS: POC Glucose,Bedside 144 (70-110)
[2020-05-14 23:34] LABS: Adenovirus F 40/41, stool Not Detected (NotDetected); Astrovirus Not Detected (NotDetected); Campylobacter Not Detected (NotDetected); Clostridium Difficile A/B, PCR Not Detected (NotDetected); Cryptosporidium Not Detected (NotDetected); Cyclospora Cayetanesis Not Detected (NotDetected); Entamoeba histolytica Not Detected (NotDetected); Enteroaggregative E coli Not Detected (NotDetected); Enteropathogenic E coli Not Detected (NotDetected); Enterotoxigenic E coli Not Detected (NotDetected); Giardia lamblia Not Detected (NotDetected); Norovirus Not Detected (NotDetected); Plesimonas Shigalloides, PCR Not Detected (NotDetected); Rotavirus A Not Detected (NotDetected); Salmonella, PCR Not Detected (NotDetected); Sapovirus Not Detected (NotDetected); Shiga-like toxin E coli Not Detected (NotDetected); Shigella Enterovasive E coli Not Detected (NotDetected); Vibrio Cholerae Not Detected (NotDetected); Vibrio, PCR Not Detected (NotDetected); Yersinia Entercolitica, PCR Not Detected (NotDetected)
--- NOTE | 2020-05-14 23:34 | PC.NURSE ---
During inital assessment period, pt stated he had some loose stools today. Per protocol, pt placed in contact precautions and pt instruction on the need to collect a stool specimen. Pt stated his understanding and hat placed in toilet with collection cup available. @ 2900 pt had a BM, it was not watery, but loose, slimey, and malodorous. Specimen collected and submitted to lab for diarrhea panel.
[2020-05-15] VITALS: BP 147/86; PULSE 74; PULSE 80; RESP 18; TEMP 37.4; O2SAT 97
--- NOTE | 2020-05-15 01:42 | PC.NURSE ---
Diarrhea panel was negative, Contact precautions removed at this time.
--- NOTE | 2020-05-15 03:47 | PC.NURSE ---
Pt is A&Ox4 and has ambulated in room and to the BR independently and tolerated well. Pt has denied any pain or N/V this shift. Pt has had a few loose stools, and sample was sent to lab for diarrhea panel per protocol, it was negative. Pt ate applesauce and jello for bedtime snack and tolerated it well. ABD is soft but slightly puffy, with hypoactive BS. Pt did not sleep as well as previous night-shift but rested quietly and slept for short durations. Lungs CTA, room air sat >94% t/o shift. VSS, call light within reach, will continue to monitor. .
[2020-05-15 04:00] VITALS: BP 174/97; PULSE 70; PULSE 75; RESP 18; TEMP 36.8; O2SAT 94
[2020-05-15 05:00] VITALS: BMI 25.4
--- NOTE | 2020-05-15 05:14 | PC.NURSE ---
Pt up to shower, linens changed at this time.
[2020-05-15 05:54] LABS: POC Glucose,Bedside 144 (70-110)
[2020-05-15 07:57] VITALS: BP 182/93; PULSE 80; RESP 18; TEMP 36.5; O2SAT 95
[2020-05-15 08:00] VITALS: PULSE 70; RESP 20
--- NOTE | 2020-05-15 08:15 | PC.NURSE ---
Addendum entered by Amna Miller RN 05/15/20 08:18: After pt's shower he was nauseated. jenniferfran and Reglan administered @ 0530. Original Note: @0615 pt up to BR to have BM and began to feel light-headed and also vomited. Staff immediately in BR to assist pt back to bed. Pt continued to vomit a 2nd time. Afterwards, pt continues to c/o light-headiness and feeling weak. Cold wash cloth given to pt and he is quietly sitting up in bed. BP elevated but otherwise stable VS.
--- NOTE | 2020-05-15 10:28 | PC.NURSE ---
per Alana Ware APRN pt is ok to go home and to call clinic pharmacy and order zofran 4mg po q8hr as needed.
[2020-05-15 11:10] VITALS: BP 168/90; PULSE 88; RESP 18; TEMP 36.6; O2SAT 97
[2020-05-15 11:21] LABS: POC Glucose,Bedside 181 (70-110)
[2020-07-08 09:28] LABS: POC Glucose,Bedside 359 (70-110)
== END 2020-05-15 12:00 | disposition home or self-care (01) | DRG 639 ==
LOC: ER 17:04 → 2ND 05-12 06:20
PROVIDERS: Nurse Practitioner Family; Admitting Provider Emergency Medicine; Emergency Provider Emergency Medicine; PCP Family Medicine; Visit Provider Emergency Medicine
DX: E11.01 Type 2 diabetes mellitus with hyperosmolarity with coma (principal); I10 Essential (primary) hypertension; R94.31 Abnormal electrocardiogram [ECG] [EKG]; Z79.84 Long term (current) use of oral hypoglycemic drugs; Z79.899 Other long term (current) drug therapy; E11.43 Type 2 diabetes mellitus with diabetic autonomic (poly)neuropathy; K31.84 Gastroparesis
CPT/HCPCS: 36415; 70450; 71045; 74176; 78264; 80048; 80053; 81001; 82009; 82803; 82962; 83036; 83605; 84484; 85025; 86328; 87040; 87507; 93005; 93306; 93880; 96365; 96366; 96367; 96375; 99285; J2405

== ENCOUNTER → 2020-06-11 11:24 | Outpatient (CLI) | payer MEDICARE, SELFPAY ==
--- NOTE | 2020-06-11 | CA_ITS ---
APPROVED REPORT Exam: Pharmacologic Technologist: Kirsty Cruz, Ht: 5 ft 10 in Wt: 170 lbs BSA: 1.95 m2 HR: 88 bpm BP: 137/77 mmHg Rhythm: NSR Medical History Medical History: HTN, Hyperlipidemia, Diabetic ??? Noninsulin Medications: Metoprolol,,,,, Metformin,,,,, Atorvastatin,,,,, Losartan/HCTZ,,,,, MetaCLOPRAMIDE,,,,, Allergies: No known drug allergies Cardiac Risk Factors: HTN, Hyperlipidemia, Diabetes (non-insulin) Stress Test Details Test: LEXISCAN HR Resting HR: 68 bpm Max Heart Rate (APMHR): 145 bpm Max HR Achieved: 93 bpm Target HR (85% APMHR): 123 bpm % of APMHR: 64 Recovery HR: 92 bpm BP Resting BP: 137.0/77.0 mmHg Max BP: 147.0/77.0 mmHg Recovery BP: 140.0/71.0 mmHg ECG Resting ECG: NSR Clinical Reason for Termination: Completed Protocol Exercise duration: 04:03 min Highest Stage Achieved: Exercise capacity: 1.0 METs Stress ECG Conclusion DURING INFUSION PATIENT HAD NO SYMPTOMS,ARRHYTHMIAS/ECTOPY OR ST-T CHANGES. NON-DIAGNOSTIC LEXISCAN STRESS Electronically signed by : Sreedhar Rodriguez, 06/14/2020 21:11:57
--- NOTE | 2020-06-11 11:29 | NM_ITS ---
APPROVED REPORT Exam: Nuclear Stress Test Indication: htn, d.m., hyperlipidemia, abnormal ekg, abnormal echo Patient Location: Outpatient Stress Tech: Jennifer Henriqueznkson [place] Tech:JEFFERY May RT (R)(N)(M) Ht: 5 ft 10 in Wt: 170 lbs HR: 84 bpm BP: 137/77 mmHg BSA: 1.95 m2 BMI: 24.3 History: htn, d.m., hyperlipidemia, abnormal ekg, abnormal echo Procedure: Patient received a 0.4 mg of intravenous Lexiscan, resting heart rate 84 bpm, resting blood pressure 137/77 mmHg, with Lexiscan maximum heart rate achived was 92 bpm which is Less than 85 % of the maximum predicted heart rate and blood pressure was 140/71 mmHg. With Lexiscan, patient denied any complaint of chest pain. Electrocardiogram Resting electrocardiogram showed sinus rhythm, with Lexiscan there is less than 1.[address] segment depression noted from the baseline EKG. The EKG portion of the Lexiscan is nondiagnostic. Cardiac Stress and Resting SPECT Images: Cardiac Stress and Resting SPECT images were obtained using technetium 99m Myoview 30.5 mCi stress and 9.85 mCi at rest. Gated SPECT for analysis of segmental wall motion and calculation of the ejection fraction also done. Cardiac stress and resting SPECT images show uniform myocardial activity without segmental perfusion abnormality, computer derived ejection fraction is 63% with no regional wall motion abnormality, right ventricle is normal size and contractility. Conclusion: 1. The EKG portion of the Lexiscan is nondiagnostic. 2. No scintigraphic evidence of reversible ischemia seen, computer derived ejection fraction 63% with no regional wall motion abnormality, right ventricle is normal size and contractility. 3. Normal Lexiscan Myoview study. Electronically signed by : Sreedhar Rodriguez, 06/14/2020 21:26:01
== END ==
PROVIDERS: PCP Emergency Medicine; Visit Provider Internal Medicine Cardiovascular Disease
DX: R94.31 Abnormal electrocardiogram [ECG] [EKG] (principal)
CPT/HCPCS: 78452; 93017; A9502; J2785

== ENCOUNTER → 2020-06-25 10:02 | Outpatient (CLI) | payer MEDICARE, SELFPAY ==
[2020-06-25 12:03] LABS: Anion Gap 15.1 mEq/L (5-15); Blood Urea Nitrogen 17 mg/dl (9-20); Calcium 9.4 mg/dl (8.4-10.2); Carbon Dioxide 30 mmol/L (22.0-30.0); Chloride 99 mmol/L (98-107); Estimated Glomerular Filt Rate 94 ml/min (>60); GFR (African American) 114 ML/MIN (>60); Glucose 161 mg/dl (74-100); Potassium 5.1 mmoL/L (3.5-5.1); Sodium 139 mmol/L (136-145)
[2020-06-25 12:08] LABS: NT Pro Brain Natriuretic Pep. 166 pg/mL (0-450)
== END ==
PROVIDERS: Visit Provider Internal Medicine Cardiovascular Disease
DX: E11.69 Type 2 diabetes mellitus with other specified complication (principal); I10 Essential (primary) hypertension; I35.9 Nonrheumatic aortic valve disorder, unspecified; R53.1 Weakness; R53.83 Other fatigue; R94.31 Abnormal electrocardiogram [ECG] [EKG]; I50.9 Heart failure, unspecified; Z79.84 Long term (current) use of oral hypoglycemic drugs
CPT/HCPCS: 36415; 80048; 83880

== ENCOUNTER → 2020-07-19 11:16 | Outpatient (POV) | payer MEDICARE, SELFPAY | PROVIDERS: Visit Provider Nurse Practitioner Family | DX: Z00.00 Encounter for general adult medical examination without abnormal findings (principal) ==

== ENCOUNTER → 2020-11-09 15:34 | Outpatient (CLI) | payer MEDICARE, SELFPAY ==
[2020-11-09 15:50] LABS: Basophils % 0.6 % (0.1-2.0); Eosinophils % 0.3 % (0.1-12.0); Hematocrit 43.5 % (42.0-52.0); Hemoglobin 14.9 g/dL (14.1-18.0); Lymphocytes # 2.2 K/mm3 (0.7-4.5); Lymphocytes % 30.1 % (10-50); Mean Corpuscular HGB Conc 34.2 g/dL (31.8-35.4); Mean Corpuscular Hemoglobin 30.6 pg (27.0-31.2); Mean Corpuscular Volume 89.6 fl (80-94); Mean Platelet Volume 10.7 fl (7.4-10.4); Monocytes # 0.4 K/mm3 (0.1-1.0); Monocytes % 5.8 % (1.7-9.3); Neutrophils # 4.5 K/mm3 (1.8-7.8); Neutrophils % 63.2 % (37.0-80.0); Platelet Count 213 K/mm3 (142-424); Red Blood Count 4.86 M/mm3 (4.60-6.20); Red Cell Distribution Width 13.5 % (11.5-17.5); White Blood Count 7.1 K/mm3 (4.8-10.8)
[2020-11-09 16:22] LABS: Creatinine,Urine Random 153 mg/dL (Not Estab.)
[2020-11-09 16:25] LABS: Microalbumin/Creatinine Ratio 7.5
[2020-11-09 16:26] LABS: Alanine Aminotransferase 31 U/L (12-78); Albumin Level 4.5 g/dl (3.5-5.0); Albumin/Globulin Ratio 1.6 (1.1-1.8); Alkaline Phosphatase 76 U/L (38-126); Anion Gap 15.1 mEq/L (5-15); Aspartate Amino Transferase 35 U/L (17-59); Bilirubin,Total 1.2 mg/dl (0.2-1.3); Blood Urea Nitrogen 24 mg/dl (9-20); Carbon Dioxide 25 mmol/L (22.0-30.0); Chloride 103 mmol/L (98-107); Chol/HDL Ratio 3.2 (1-3.5); Cholesterol 105 mg/dl (140-200); Estimated Glomerular Filt Rate 82 ml/min (>60); GFR (African American) 100 ML/MIN (>60); Globulin 2.8 g/dL (1.3-3.2); Glucose 183 mg/dl (74-100); HDL Cholesterol 33 mg/dl (40-60); Potassium 4.1 mmoL/L (3.5-5.1); Sodium 139 mmol/L (136-145); Total Protein,Serum 7.3 g/dl (6.3-8.2); Triglycerides 115 mg/dl (30-150); VLDL Cholesterol 23 mg/dL (0-40)
[2020-11-09 16:37] LABS: Direct LDL Cholesterol 46.02 mg/dL (100-129)
[2020-11-09 16:39] LABS: Hemoglobin A1C 8.7 % (4.0-6.0)
[2020-11-09 16:43] LABS: 25-OH Vitamin D, Total 23.6 ng/mL (30-100); T4 (Thyroxine) 7.5 ug/dl (5.53-11.0)
[2020-11-09 16:57] LABS: Thyroid Stimulating Hormone 1.73 uIU/mL (0.465-4.68)
== END ==
PROVIDERS: Visit Provider Nurse Practitioner Family
DX: E11.01 Type 2 diabetes mellitus with hyperosmolarity with coma (principal); E55.9 Vitamin D deficiency, unspecified; Z79.84 Long term (current) use of oral hypoglycemic drugs
CPT/HCPCS: 80053; 80061; 82043; 82306; 82570; 83036; 84436; 84443; 85025

== ENCOUNTER → 2021-01-24 09:15 | Outpatient (POV) | payer MEDICARE, SELFPAY ==
[2021-01-24 14:42] LABS: Alanine Aminotransferase 26 U/L (12-78); Albumin/Globulin Ratio 1.5 (1.1-1.8); Alkaline Phosphatase 66 U/L (38-126); Amylase 56 U/L (30-110); Anion Gap 11.1 mEq/L (5-15); Aspartate Amino Transferase 27 U/L (17-59); Blood Urea Nitrogen 25 mg/dl (9-20); Carbon Dioxide 27 mmol/L (22.0-30.0); Chloride 103 mmol/L (98-107); Estimated Glomerular Filt Rate 94 ml/min (>60); GFR (African American) 114 ML/MIN (>60); Globulin 2.6 g/dL (1.3-3.2); Glucose 236 mg/dl (74-100); Lipase 226 U/L (23-300); Potassium 4.1 mmoL/L (3.5-5.1); Sodium 137 mmol/L (136-145); Total Protein,Serum 6.6 g/dl (6.3-8.2)
== END ==
PROVIDERS: Visit Provider Nurse Practitioner Family
DX: I10 Essential (primary) hypertension (principal); E11.9 Type 2 diabetes mellitus without complications; Z79.84 Long term (current) use of oral hypoglycemic drugs; R10.84 Generalized abdominal pain
CPT/HCPCS: 36415; 80053; 82150; 83690

== ENCOUNTER → 2021-04-05 09:19 | Outpatient (CLI) | payer MEDICARE, SELFPAY ==
--- NOTE | 2021-04-05 09:28 | MR_ITS ---
PROCEDURE: MR ABDOMEN WO CON CLINICAL INDICATION: ABNORMAL FINDINGS ON DIAGNOSTIC IMAGING Possible chronic pancreatitis COMPARISON: CT CT ABDOMEN PELVIS WO CON from 05/14/2020 TECHNIQUE: Routine multiplanar multi echo sequences are performed without gadolinium enhancement. FINDINGS: There are 2 hepatic cyst present in the left hepatic lobe. The spleen and adrenal glands have an unremarkable appearance. There is fullness in the pancreatic tail region with at least 4 small cysts in the pancreatic tail at 2-3 mm. Other small cysts are present in the body of the pancreas at 2-3 mm. MRCP. The common bile duct has an unremarkable caliber. No filling defects are evident. No obvious gallstones. Pancreatic duct has an unremarkable appearance. IMPRESSION: 1. There is fullness in the pancreatic tail. Cannot exclude the possibility of a pancreatic mass in the tail the pancreas. Suggest MRI without and with contrast with pancreatic protocol for further evaluation. Contrast was not utilized on this study. 2. There are several tiny pancreatic cysts. These are nonspecific and may only be related to simple cysts of the pancreas.. Follow-up suggested to confirm stability. 3. Unremarkable MRCP Dictated by: Jackson Bragg MD 04/06/2021 09:39 Jackson Bragg MD in [place] 04/06/2021 09:39
== END ==
PROVIDERS: PCP Emergency Medicine; Visit Provider Nurse Practitioner Family
DX: K31.84 Gastroparesis (principal); R93.3 Abnormal findings on diagnostic imaging of other parts of digestive tract
CPT/HCPCS: 74181; 76376

== ENCOUNTER → 2021-04-20 11:54 | Outpatient (CLI) | payer MEDICARE, SELFPAY ==
[2021-04-20 13:48] LABS: Alanine Aminotransferase 22 U/L (12-78); Albumin Level 3.7 g/dl (3.5-5.0); Albumin/Globulin Ratio 1.2 (1.1-1.8); Alkaline Phosphatase 81 U/L (38-126); Amylase 44 U/L (30-110); Anion Gap 12.7 mEq/L (5-15); Aspartate Amino Transferase 24 U/L (17-59); Bilirubin,Total 0.8 mg/dl (0.2-1.3); Blood Urea Nitrogen 20 mg/dl (9-20); Carbon Dioxide 27 mmol/L (22.0-30.0); Chloride 101 mmol/L (98-107); Estimated Glomerular Filt Rate 82 ml/min (>60); GFR (African American) 99 ML/MIN (>60); Glucose 172 mg/dl (74-100); Lipase 118 U/L (23-300); Potassium 4.7 mmoL/L (3.5-5.1); Sodium 136 mmol/L (136-145); Total Protein,Serum 6.7 g/dl (6.3-8.2)
[2021-04-21 11:22] LABS: CA 19-9 45 U/mL (0-35)
== END ==
PROVIDERS: Visit Provider Nurse Practitioner Family
DX: K86.89 Other specified diseases of pancreas (principal); R93.5 Abnormal findings on diagnostic imaging of other abdominal regions, including retroperitoneum; R97.0 Elevated carcinoembryonic antigen [CEA]
CPT/HCPCS: 36415; 80053; 82150; 82378; 83690; 86316

== ENCOUNTER → 2021-04-29 08:06 | Outpatient (CLI) | payer MEDICARE, SELFPAY ==
--- NOTE | 2021-04-29 08:09 | MR_ITS ---
PROCEDURE INFORMATION: Exam: MR Abdomen Without and With Contrast Exam date and time: 04/29/2021 8:09 AM Age: 76 years old Clinical indication: Abnormal findings; Abnormal radiologic finding of the abdomen; Radiologic exam and body structure: Mri; Additional info: Pancreatic mass. ? ? Pancreatic mass seen on mri from 04-05-21. 16ml prohance injected TECHNIQUE: Imaging protocol: MR of the abdomen without and with intravenous contrast. Contrast material: PROHANCE; Contrast volume: 16 ml; Contrast route: IV; COMPARISON: MR ABDOMEN WO CON 04/05/2021 9:41 AM FINDINGS: Mediastinal space: Minimal hiatal hernia. No acute findings in the stomach. Liver: No hepatomegaly. No suspicious mass. Two left hepatic cystic lesions of 9 and 11 mm as noted on the previous MRI, showing no suspicious contrast enhancement. No suspicious mass. Gallbladder and bile ducts: The gallbladder is unremarkable. No intraluminal stones or biliary dilatation. No significant ductal dilatation. Pancreas: Normal pancreatic enhancement. No mass lesion is seen in the pancreas tail in the region of questionable soft tissue fullness reported on the prior study. Some tiny foci of minimally increased T2 hyperintensity in the tail of pancreas on series 9, possibly corresponding with tiny blood vessels or minimal cystic changes, or this could be altered signal in the region of some punctate calcifications seen in the pancreas tail on the CT exam of 05/14/2020, likely the sequela of prior pancreatitis.. No definite communication with the main pancreatic duct is seen. No enlarged or complicated cyst. No peripancreatic edema. Spleen: The spleen is normal. Adrenal glands: The adrenal glands are normal. Kidneys and ureters: The kidneys are normal. Stomach and bowel: There is no evidence of intestinal perforation or obstruction. Intraperitoneal space: There is no significant free intraperitoneal fluid. Arteries: There is no aortic aneurysm. Lymph nodes: No significantly enlarged lymph nodes by short axis criteria. Bones/joints: There are spinal degenerative changes, with multilevel disc narrrowing and spondylosis. Soft tissues: There are no soft tissue masses or fluid collections. IMPRESSION: 1. No acute findings. 2. No suspicious pancreas mass or ductal dilatation. 3. Equivocal 2-3 mm tiny cystic lesions in the tail of the pancreas as reported on the prior MRI study. Consider repeat enhanced MRI in 2 years, if these remain stable no further imaging is indicated for a patient of this age. (Reference: Giovani, 2017) 4. Simple left hepatic cysts again noted. REFERENCES: Giovani NOLASCO, et al. Management of Incidental Pancreatic Cysts: A White Paper of the ACR Incidental Findings Committee. J Am Ricky Radiol. 2017;14(7):911-923.
== END ==
PROVIDERS: PCP Emergency Medicine; Visit Provider Nurse Practitioner Family
DX: K86.89 Other specified diseases of pancreas (principal); R93.5 Abnormal findings on diagnostic imaging of other abdominal regions, including retroperitoneum
CPT/HCPCS: 74183; 76376; A9576

== ENCOUNTER → 2021-10-31 16:46 | Outpatient (CLI) | payer MEDICARE, SELFPAY ==
[2021-10-31 14:56] LABS: Basophils # 0.1 K/mm3 (0-0.2); Basophils % 0.6 % (0.1-2.0); Eosinophils % 0.3 % (0.1-12.0); Hematocrit 37.2 % (42.0-52.0); Hemoglobin 11.9 g/dL (14.1-18.0); Lymphocytes # 2.1 K/mm3 (0.7-4.5); Lymphocytes % 20.4 % (10-50); Mean Corpuscular HGB Conc 32.1 g/dL (31.8-35.4); Mean Corpuscular Hemoglobin 30.1 pg (27.0-31.2); Mean Corpuscular Volume 93.6 fl (80-94); Monocytes # 0.5 K/mm3 (0.1-1.0); Neutrophils # 7.5 K/mm3 (1.8-7.8); Neutrophils % 73.8 % (37.0-80.0); Platelet Count 256 K/mm3 (142-424); Red Blood Count 3.97 M/mm3 (4.60-6.20); Red Cell Distribution Width 14.8 % (11.5-17.5); White Blood Count 10.2 K/mm3 (4.8-10.8)
[2021-10-31 15:48] LABS: Alanine Aminotransferase 26 U/L (12-78); Albumin Level 3.9 g/dl (3.5-5.0); Albumin/Globulin Ratio 1.3 (1.1-1.8); Alkaline Phosphatase 87 U/L (38-126); Anion Gap 17.7 mEq/L (5-15); Aspartate Amino Transferase 29 U/L (17-59); Bilirubin,Total 0.9 mg/dl (0.2-1.3); Blood Urea Nitrogen 22 mg/dl (9-20); Carbon Dioxide 25 mmol/L (22.0-30.0); Chloride 104 mmol/L (98-107); Estimated Glomerular Filt Rate 82 ml/min (>60); GFR (African American) 99 ML/MIN (>60); Globulin 2.9 g/dL (1.3-3.2); Glucose 125 mg/dl (74-100); Potassium 4.7 mmoL/L (3.5-5.1); Sodium 142 mmol/L (136-145); Total Protein,Serum 6.8 g/dl (6.3-8.2)
[2021-11-02 14:49] LABS: Hemoglobin A1C 6.8 % (4.0-6.0)
[2021-11-02 15:08] LABS: Iron 91 ug/dL (49-181)
[2021-11-02 15:43] LABS: Ferritin 542 ng/ml (17.9-464)
[2021-11-02 16:55] LABS: Total Iron Binding Capacity 252 ug/dL (261-462)
== END ==
PROVIDERS: Physician Assistant; Visit Provider Emergency Medicine
DX: E11.01 Type 2 diabetes mellitus with hyperosmolarity with coma; R53.83 Other fatigue; Z79.84 Long term (current) use of oral hypoglycemic drugs
CPT/HCPCS: 80053; 82728; 83036; 83540; 83550; 85025

== ENCOUNTER → 2022-05-30 15:03 | Outpatient (POV) | payer MEDICARE, SELFPAY | PROVIDERS: Visit Provider Dermatology | DX: Z00.00 Encounter for general adult medical examination without abnormal findings (principal) ==

== ENCOUNTER → 2022-11-20 09:38 | Outpatient (CLI) | payer MEDICARE, SELFPAY ==
[2022-11-20 15:00] LABS: Basophils # 0.1 K/mm3 (0-0.2); Basophils % 0.8 % (0.1-2.0); Eosinophils % 0.5 % (0.1-12.0); Hematocrit 38.2 % (42.0-52.0); Hemoglobin 11.9 g/dL (14.1-18.0); Lymphocytes # 1.8 K/mm3 (0.7-4.5); Lymphocytes % 27.3 % (10-50); Mean Corpuscular HGB Conc 31.2 g/dL (31.8-35.4); Mean Corpuscular Hemoglobin 29.2 pg (27.0-31.2); Mean Corpuscular Volume 93.4 fl (80-94); Mean Platelet Volume 9.4 fl (7.4-10.4); Monocytes # 0.5 K/mm3 (0.1-1.0); Monocytes % 6.8 % (1.7-9.3); Neutrophils # 4.3 K/mm3 (1.8-7.8); Neutrophils % 64.6 % (37.0-80.0); Platelet Count 215 K/mm3 (142-424); Red Blood Count 4.09 M/mm3 (4.60-6.20); Red Cell Distribution Width 13.7 % (11.5-17.5); White Blood Count 6.6 K/mm3 (4.8-10.8)
[2022-11-20 15:10] LABS: Alanine Aminotransferase 24 U/L (12-78); Albumin/Globulin Ratio 1.4 (1.1-1.8); Alkaline Phosphatase 85 U/L (38-126); Aspartate Amino Transferase 29 U/L (17-59); Bilirubin,Total 0.8 mg/dl (0.2-1.3); Blood Urea Nitrogen 26 mg/dl (9-20); Calcium 8.9 mg/dl (8.4-10.2); Carbon Dioxide 28 mmol/L (22.0-30.0); Chloride 104 mmol/L (98-107); Chol/HDL Ratio 3.3 (1-3.5); Cholesterol 85 mg/dl (140-200); Estimated Glomerular Filt Rate 65 ml/min (>60); GFR (African American) 79 ML/MIN (>60); Globulin 2.9 g/dL (1.3-3.2); Glucose 158 mg/dl (74-100); HDL Cholesterol 26 mg/dl (40-60); Sodium 139 mmol/L (136-145); Total Protein,Serum 6.9 g/dl (6.3-8.2); Triglycerides 129 mg/dl (30-150); VLDL Cholesterol 26 mg/dL (0-40)
[2022-11-20 15:22] LABS: Direct LDL Cholesterol 39.56 mg/dL (100-129)
[2022-11-20 15:26] LABS: Free T4 (Free Thyroxine) 0.88 ng/dl (0.78-2.19); Microalbumin/Creatinine Ratio 6.9
[2022-11-20 15:32] LABS: Creatinine,Urine Random 142 mg/dL (Not Estab.)
[2022-11-20 15:42] LABS: Prostate Specific Ag Screen 3.9 ng/ml (0.0-4.0); Thyroid Stimulating Hormone 1.43 uIU/mL (0.465-4.68)
[2022-11-20 17:31] LABS: Hemoglobin A1C 6.9 % (4.0-6.0)
== END ==
PROVIDERS: PCP Emergency Medicine; Visit Provider Emergency Medicine
DX: E11.01 Type 2 diabetes mellitus with hyperosmolarity with coma (principal); Z12.5 Encounter for screening for malignant neoplasm of prostate; Z79.84 Long term (current) use of oral hypoglycemic drugs
CPT/HCPCS: 80053; 80061; 82043; 82570; 83036; 84439; 84443; 85025; G0103

== ENCOUNTER → 2023-03-22 08:59 | Outpatient (CLI) | payer MEDICARE, SELFPAY ==
--- NOTE | 2023-03-22 08:59 | NM_ITS ---
FINAL REPORT TECHNIQUE: Sequential anterior images were obtained after the ingestion of 2 whole eggs and white toast with butter radiolabeled with 0.56 mCi technetium 99M sulfur colloid. CLINICAL HISTORY: Gastroparesis 9:15 am .56 [facility] sulfur colloid injected into 2 whole eggs and white toast with butter COMPARISON: 05/13/2020 FINDINGS: GASTRIC EMPTYING SCAN Static images show normal emptying of the stomach into the small bowel. Based on the time activity curve, the estimated half-emptying time is 102 minutes. IMPRESSION: Normal gastric emptying study. Reviewed, Interpreted and Dictated by Epi Ann III, MD Transcribed by Megan Sotelo Authenticated and [facility]
== END ==
PROVIDERS: PCP Emergency Medicine; Visit Provider Emergency Medicine
DX: K31.84 Gastroparesis (principal)
CPT/HCPCS: 78264; A9541

== ENCOUNTER 2024-03-19 20:41 | Outpatient (CLI) | payer MEDICARE, SELFPAY ==
[2024-03-19 21:50] LABS: Basophils # 0.1 K/mm3 (0-0.2); Basophils % 0.9 % (0.1-2.0); Eosinophils % 0.3 % (0.1-12.0); Hematocrit 40.4 % (42.0-52.0); Lymphocytes % 32.2 % (10-50); Mean Corpuscular HGB Conc 32.1 g/dL (31.8-35.4); Mean Corpuscular Hemoglobin 30.4 pg (27.0-31.2); Mean Corpuscular Volume 94.8 fl (80-94); Mean Platelet Volume 11.6 fl (7.4-10.4); Monocytes # 0.4 K/mm3 (0.1-1.0); Monocytes % 6.3 % (1.7-9.3); Neutrophils # 3.7 K/mm3 (1.8-7.8); Neutrophils % 60.4 % (37.0-80.0); Platelet Count 222 K/mm3 (142-424); Red Blood Count 4.26 M/mm3 (4.60-6.20); Red Cell Distribution Width 14.5 % (11.5-17.5); White Blood Count 6.2 K/mm3 (4.8-10.8)
[2024-03-19 22:07] LABS: Alanine Aminotransferase 33 U/L (12-78); Albumin/Globulin Ratio 1.3 (1.1-1.8); Alkaline Phosphatase 80 U/L (38-126); Anion Gap 11.3 mEq/L (5-15); Aspartate Amino Transferase 31 U/L (17-59); Bilirubin,Total 0.7 mg/dl (0.2-1.3); Blood Urea Nitrogen 26 mg/dl (9-20); Calcium 9.2 mg/dl (8.4-10.2); Carbon Dioxide 27 mmol/L (22.0-30.0); Chloride 103 mmol/L (98-107); Estimated Glomerular Filt Rate 72 ml/min (>60); GFR (African American) 87 ML/MIN (>60); Glucose 171 mg/dl (74-100); Potassium 4.3 mmoL/L (3.5-5.1); Sodium 137 mmol/L (136-145)
[2024-03-19 22:19] LABS: Hemoglobin A1C 7.4 % (4.0-6.0)
[2024-03-19 22:36] LABS: Prostate Specific Ag Screen 4.5 ng/ml (0.0-4.0); Thyroid Stimulating Hormone 2.56 uIU/mL (0.465-4.68)
== END 2024-03-19 23:59 | disposition home or self-care (01) ==
PROVIDERS: PCP Internal Medicine; Visit Provider Internal Medicine
DX: E11.9 Type 2 diabetes mellitus without complications (principal); I10 Essential (primary) hypertension; D64.9 Anemia, unspecified; Z12.5 Encounter for screening for malignant neoplasm of prostate; R53.83 Other fatigue
CPT/HCPCS: 80050; 80053; 82043; 83036; 84443; 85025; G0103

== ENCOUNTER 2024-05-07 09:49 | Outpatient (CLI) | payer MEDICARE, SELFPAY ==
[2024-05-07 19:03] LABS: Chol/HDL Ratio 3.4 (1-3.5); Cholesterol 92 mg/dl (140-200); HDL Cholesterol 27 mg/dl (40-60); Triglycerides 170 mg/dl (30-150); VLDL Cholesterol 34 mg/dL (0-40)
[2024-05-07 19:14] LABS: Direct LDL Cholesterol 40.08 mg/dL (100-129)
[2024-05-07 19:53] LABS: HIV (1&2) Antibody Rapid NONREACTIVE (NONREACTIVE)
[2024-05-09 05:13] LABS: HBsAg Screen Negative (Negative); HCV Ab Non Reactive (Non Reactive); Hep A Ab, IGM Negative (Negative); Hep B Core Ab, IgM Negative (Negative)
== END 2024-05-07 23:59 | disposition home or self-care (01) ==
LOC: LAB.DROPOF 05-08 09:50
PROVIDERS: PCP Internal Medicine; Visit Provider Internal Medicine
DX: E78.5 Hyperlipidemia, unspecified (principal); Z11.59 Encounter for screening for other viral diseases; K74.60 Unspecified cirrhosis of liver; E11.9 Type 2 diabetes mellitus without complications; I10 Essential (primary) hypertension; R97.20 Elevated prostate specific antigen [PSA]
CPT/HCPCS: 80061; 80074; 86803; 87389

== ENCOUNTER 2024-07-02 13:30 | Outpatient (CLI) | payer MEDICARE, SELFPAY ==
[2024-07-02 20:05] LABS: Hemoglobin A1C 7.5 % (4.0-6.0)
== END 2024-07-02 23:59 | disposition home or self-care (01) ==
LOC: LAB.DROPOF 07-03 15:49
PROVIDERS: PCP Internal Medicine; Visit Provider Internal Medicine
DX: E11.9 Type 2 diabetes mellitus without complications (principal)
CPT/HCPCS: 83036

== ENCOUNTER 2025-02-13 13:46 | Outpatient (CLI) | payer MEDICARE, SELFPAY ==
[2025-02-13 18:32] LABS: Basophils # 0.1 K/mm3 (0-0.2); Eosinophils % 0.2 % (0.1-12.0); Hematocrit 39.8 % (42.0-52.0); Immature Granulocytes # 0.02 10^3uL; Immature Granulocytes % 0.3 %; Lymphocytes # 1.8 K/mm3 (0.7-4.5); Lymphocytes % 29.9 % (10-50); Mean Corpuscular HGB Conc 32.7 g/dL (31.8-35.4); Mean Corpuscular Volume 91.7 fl (80-94); Mean Platelet Volume 11.6 fl (7.4-10.4); Monocytes # 0.4 K/mm3 (0.1-1.0); Neutrophils # 3.8 K/mm3 (1.8-7.8); Neutrophils % 62.6 % (37.0-80.0); Nucleated Red Blood Cells # 0 10^3/uL; Nucleated Red Blood Cells % 0 %; Platelet Count 186 K/mm3 (142-424); Red Blood Count 4.34 M/mm3 (4.60-6.20); Red Cell Distribution Width 13.1 % (11.5-17.5)
[2025-02-13 18:46] LABS: Alanine Aminotransferase 33 U/L (12-78); Albumin Level 4.3 g/dl (3.5-5.0); Albumin/Globulin Ratio 1.5 (1.1-1.8); Alkaline Phosphatase 72 U/L (38-126); Anion Gap 13.9 mEq/L (5-15); Aspartate Amino Transferase 32 U/L (17-59); Bilirubin,Total 1.2 mg/dl (0.2-1.3); Blood Urea Nitrogen 27 mg/dl (9-20); Carbon Dioxide 28 mmol/L (22.0-30.0); Chloride 101 mmol/L (98-107); Chol/HDL Ratio 4.3 (1-3.5); Cholesterol 102 mg/dl (140-200); Estimated Glomerular Filt Rate 58 ml/min (>60); GFR (African American) 70 ML/MIN (>60); Globulin 2.8 g/dL (1.3-3.2); Glucose 205 mg/dl (74-100); HDL Cholesterol 24 mg/dl (40-60); Potassium 4.9 mmoL/L (3.5-5.1); Sodium 138 mmol/L (136-145); Total Protein,Serum 7.1 g/dl (6.3-8.2); Triglycerides 214 mg/dl (30-150); VLDL Cholesterol 43 mg/dL (0-40)
[2025-02-13 18:57] LABS: Direct LDL Cholesterol 42.26 mg/dL (100-129)
[2025-02-13 19:02] LABS: Hemoglobin A1C 8.6 % (4.0-6.0)
--- OUTSIDE RECORDS SUMMARY | 2025-02-14 08:25 | XMS_ITS | Clinical Summary ---
Author Organization [facility] Address [address] [place] [address] Phone Care Team Providers Care Duct Installer Name Role Phone Unavailable Primary Care Provider Unavailabl e Allergies No known active allergies Medications No known medications Active Problems No known active problems Immunizations Immunization Administration Dates Next Due Pneumococcal Polysaccharide 23 Valent 03/24/2010 Tdap 06/12/2011 06/12/2021 Surgical History Surgery Date Site/Laterality Comments HERNIA REPAIR Medical History Medical History Date Comments HTN (hypertension) Family History Medical History Relation Name Comments Colon Cancer Neg Hx Prostate Cancer Neg Hx Social History Tobacco Use Types Packs/Day Years Used Date Smoking Tobacco: Never Smokeless Tobacco: Never Alcohol Use Standard Drinks/Week Comments No 0 (1 standard drink = 0.6 oz pur e alcohol) Sex and Gender Information Value Date Recorded Sex Assigned at Not on file Legal Sex Male 4:47 PM EDT Gender Identity Not on file Sexual Orientation Not on file Obstetrics History Last Filed Vital Signs Vital Sign Reading Time Taken Comments Blood Pressure 140/80 07/18/2013 3:50 PM EST Pulse 100 07/18/2013 3:50 PM EST Temperature 36.9 C (98.4 F) 07/18/2013 3:50 PM EST Respiratory Rate 16 07/18/2013 3:50 PM EST Oxygen Saturation 97% 07/18/2013 3:50 PM EST Inhaled Oxygen Concentration - - Weight 87.1 kg (192 lb) 07/18/2013 3:50 PM EST Height 179.1 cm (5' 10.5 ) 07/18/2013 3:50 PM ES T Body Mass Index 27.16 07/18/2013 3:50 PM EST Plan of Treatment Health Maintenance Due Date Last Done Comments Wellness Exam Medicare 01/30/1948 Hepatitis C Screening 1963 Zoster (1 of 2) 1995 Pneumococcal Vaccine 50+ (2 of 2 - PCV) 03/24/2011 03/24/2010 RSV or 60+ (1 - 1-d ose 75+ series) 01/30/2020 DTaP/TDaP/Td (2 - Td or Tdap) 06/12/2021 06/12/2011 COVID-19 Vaccine ( - 2023-2 5 season) 2024 Influenza Vaccine (Season Ended) 2025 Hepatitis B Vaccine Aged Out No longe r eligible based on patient's age to complete this topic Meningococcal B Vaccine Aged Out No l onger eligible based on patient's age to complete this topic Insurance MEDICARE [place] PART A AND B
== END 2025-02-13 23:59 | disposition home or self-care (01) ==
LOC: LAB 02-14 08:23
PROVIDERS: PCP Family Medicine; Visit Provider Family Medicine
DX: E11.69 Type 2 diabetes mellitus with other specified complication (principal); E78.2 Mixed hyperlipidemia; D50.9 Iron deficiency anemia, unspecified
CPT/HCPCS: 80053; 80061; 83036; 85025